=== PATIENT | female | born 1990 | race Caucasian/White ===

== ENCOUNTER 2024-12-20 20:23 | Emergency (ER) | payer BC, SELFPAY ==
[2024-12-20 20:26] VITALS: BP 132/96
[2024-12-20] MEDS: ZOFRAN 4 MG IV (20:45)
[2024-12-20 20:54] LABS: % Basophils 0.6 % (0-2); % Eosinophils 1.3 % (0-6); % Immature Granulocytes 3.7 % (0-0.5); % Lymphocytes 8.4 % (20.5-51.1); % Monocytes 6.4 % (1.7-9.3); % Neutrophils 79.6 % (42.2-75.2); Absolute Basophils 0.1 10^3/uL (0-0.2); Absolute Eosinophils 0.1 10^3/uL (0-0.7); Absolute Immature Granulocytes 0.3 10^3/uL (0-0.05); Absolute Lymphocytes 0.7 10^3/uL (1.2-3.4); Absolute Monocytes 0.6 10^3/uL (0.1-0.6); Hematocrit 43.7 % (37.0-47.0); Hemoglobin 15.2 g/dL (12.0-16.0); Mean Corp Hgb Conc. 34.8 g/dL (33.0-37.0); Mean Corpuscular Hgb 29.1 pg (27.0-31.0); Mean Corpuscular Volume 83.6 fL (81.0-99.0); Mean Platelet Volume 9.1 fL (7.4-10.4); Nucleated Red Blood Cells % 0 %; Platelet Count 187 10^3/uL (130-400); Red Blood Cell Count 5.23 10^6/uL (4.20-5.40); Red Cell Dist. Width 12.3 % (11.5-14.5); White Blood Cell Count 8.7 10^3/uL (4.8-10.8)
[2024-12-20 21:07] LABS: HCG, Serum Qualitative Screen Negative
[2024-12-20 21:11] LABS: ALT (SGPT) 23 U/L (0-35); AST (SGOT) 20 U/L (14-36); Albumin 4.7 g/dl (3.5-5.0); Alkaline Phosphatase 61 U/L (38-126); Blood Urea Nitrogen 19 mg/dl (7-17); Calcium 9.1 mg/dl (8.4-10.2); Carbon Dioxide 27 mmol/L (22-30); Chloride 105 mmol/L (98-107); Glucose 128 mg/dl (70-99); Potassium 4.3 mmol/L (3.5-5.1); Sodium 142 mmol/L (135-145); Total Protein 7.1 g/dl (6.3-8.2); eGFR > 60.00
[2024-12-20 21:13] LABS: Lipase 73 U/L (23-300)
[2024-12-20 21:49] VITALS: BP 112/95
[2024-12-20 22:00] VITALS: BP 131/78
[2024-12-20 22:01] VITALS: BMI 34.1
[2024-12-20 23:00] VITALS: BP 128/75
--- NOTE | 2024-12-20 23:00 | ED.GENMED ---
History of Present Illness
General
Chief Complaint: Abdominal Symptoms
Source: patient
Exam Limitations: none
Time Seen by Provider: 12/20/24 22:59
Nursing documentation reviewed up to this point in time: agreed with
History of Present Illness
History of Present Illness:
34-year-old female with no past medical history presents emergency department today with concerns of nausea, vomiting and diarrhea for the past 8 hours or so. Patient reports that she was taking her daughter to gymast's practice when she got home,
she suddenly started to feel nauseous, and later developed a headache and diarrhea. Of note, her was sick with similar symptoms the past few days. Patient recently finished a Z-Uli for bronchitis and states that her cough and URI symptoms
have been improving. She denies any fevers or chills. She denies any bloody stools or rectal bleeding. Denies any hematemesis. She denies any neck stiffness, visual changes, visual loss, upper extremity weakness, fainting spells, dizziness or
lightheadedness. She denies any chest pain or shortness of breath. She denies any abdominal pain, recent intra-abdominal surgeries. Patient is currently breast-feeding and is currently multiple months , denies any redness around the
breast or purulent drainage from the nipples.
Past History
Past History
ED Past Medical History: None
ED Past Surgical History: None
Social History
Tobacco: Non-smoker
Alcohol: None
Drug: None
Review of Systems
Review of Systems
All Other Systems: ROS reviewed and negative except as documented in HPI and ROS
Phy Exam
Physical Exam
Physical Exam:
General: Patient is well appearing and in no acute distress; non-toxic
Skin: Warm and dry, no rashes or lesions
Head: Normocephalic, atraumatic
Eyes: Sclera non-icteric. EOMs intact.
Cardiac: Regular rate and rhythm, no murmurs
Peripheral Vascular: No lower extremity swelling or edema
Pulm: Normal respiratory effort, no wheezes, rales, or rhonchi
Abdomen: No abdominal tenderness to palpation
Neuro: CN II-XII intact, no focal neurologic deficits.
Psychiatric: Appropriate mood and affect.
Course
Orders/Labs/Results
Orders:
Orders
12/20/24 20:29
Electrocardiogram (*1) Urgent
Reason for Study: Vertigo / Dizzy
EKG- Treatment ONCE
Test Result ONCE
12/20/24 20:40
Ondansetron Injectable [Zofran] 4 mg .ROUTE .STK-MED ONE
12/20/24 20:45
Complete Blood Count/With Diff Urgent
Comprehensive Metabolic Panel Urgent
HCG, Serum Qualitative Screen Urgent
Lipase Urgent
Ondansetron Injectable [Zofran] 4 mg IV NOW STA
12/20/24 23:13
0.9% Sodium Chloride 1000 ml [Nss] 1,000 ml IV BOLUS
Ketorolac [Toradol] 15 mg IV NOW STA
Metoclopramide [Reglan] 10 mg IV NOW STA
Abnormal Lab Results
12/20/24
20:45
Abs Immat Gran (auto) 0.3 H 10^3/uL
(0-0.05)
Absolute Neuts (auto) 7.0 H 10^3/uL
(1.4-6.5)
Absolute Lymphs (auto) 0.7 L 10^3/uL
(1.2-3.4)
Immature Gran % 3.7 H %
(0-0.5)
Neutrophils % 79.6 H %
(42.2-75.2)
Lymphocytes % 8.4 L %
(20.5-51.1)
BUN 19 H mg/dl
(7-17)
Glucose 128 H mg/dl
(70-99)
12/20/24 20:45
12/20/24 20:45
Vital Signs
Initial and Last Documented VS:
Initial Vital Signs
Temp Pulse Resp BP Pulse Ox
98.4 F 114 16 132/96 98
12/20/24 20:26 12/20/24 20:26 12/20/24 20:26 12/20/24 20:26 12/20/24 20:26
Last Documented Vital Signs
Temp Pulse Resp BP Pulse Ox
98.4 F 85 17 128/75 96
12/20/24 20:26 12/21/24 01:00 12/21/24 01:00 12/20/24 23:00 12/21/24 01:00
MDM/Problems Addressed
Differential Diagnosis Includes:
ddx include viral gastroenteritis, viral syndrome, colitis, IBS
MDM/Problems Addressed:
34-year-old female with no past medical history presents emergency department today with concerns of nausea, vomiting and diarrhea for the past 8 hours or so. Her is sick with similar symptoms. Patient denies any abdominal pain, fevers,
rectal bleeding, bloody stools. Associated with headache as well. Symptoms resolved with toradol and zofran, patient rehydrated with IV fluids. No DESTINY or electrolyte derangement noted on blood work. CBC unremarkable. Patient is able to tolerate PO.
Patient stable for discharge.
Did attempt to obtain stool culture however patient was unable to provide a sample for us in the ER; low suspicion for C.diff colitis.
*Pulse Oximetry
Patient hypoxic: no
*Critical Care Note
Total Time (30-74mins, 75-104mins- exclusive of procedures): Not Applicable
Data Reviewed
Review of Other/Old Records Reveals: Records
Patient Management
Escalation/DeEscalation of care consider admission/obs:
Patient stable for discharge
Update Note
Update Note:
12:33 am--Update patient states that she is feeling better has not had any further episodes of diarrhea or vomiting since she has been treated. Patient states her headache is improved. Patient is going to [employer]
ED Attending Note
-
Portions of this chart may have been created with voice recognition software.� Occasional wrong word or��sound alike� substitutions may have occurred due to the inherent limitations of voice recognition software.
Discharge Plan
Departure
Patient Disposition: Home (Routine Discharge)
Date of Disposition: 12/21/24
Time of Disposition: 01:03
Patient with high blood pressure during this ER visit?: Yes
Condition: Good
Discharge Problem:
Viral gastroenteritis
Instructions: Viral gastroenteritis in adults, Nausea and Vomiting, Adult (DC), BLOOD PRESSURE
Prescriptions:
New
ondansetron 4 mg tablet,disintegrating
4 mg PO Q4H PRN (Reason: nausea and vomiting) Qty: 10 0RF
No Action
Vitamin Tablet
1 tab PO DAILY
acetaminophen 325 MG tablet
650 mg PO Q4HPRN PRN (Reason: mild pain) 0RF
ibuprofen 600 MG tablet
600 mg PO Q4HPRN PRN (Reason: cramps) Qty: 30 0RF
Referrals:
Simin Mccormick CRNP [Family Provider] -
Activity Restrictions/Additional Instructions:
Please follow up with your primary care provider in 1-2 weeks.
PLEASE RETURN TO THE EMERGENCY DEPARTMENT SHOULD YOU DEVELOP CHEST PAIN, SHORTNESS OF BREATH, INTRACTABLE NAUSEA VOMITING, INABILITY TOLERATE ORAL INTAKE, FEVERS, RECTAL BLEEDING, DARK TARRY STOOLS, VISUAL CHANGES, INTRACTABLE HEADACHE, OR ANY OTHER
SIGNS OR SYMPTOMS WORRISOME TO YOU.
Interventions
Interventions:
*Risk Screen - Suicide Last Done: 12/20/24 22:04
*General Assessment Last Done: 12/20/24 22:04
*Neglect/Abuse Screening Last Done: 12/20/24 22:04
*ED- Fall Risk Assessment Last Done: 12/20/24 22:04
*ED COVID-19 Vaccine History Last Done: 12/20/24 22:04
*Nursing Disposition Last Done: 12/21/24 01:19
NU-Slkdgl-Fajddnygkr Assessment Last Done: 12/20/24 22:04
Discharge Date and Time
Discharge Date/Time: 12/21/24 01:20
Print Language: SENEGALESE
[2024-12-20] MEDS: NSS 1000 IV (23:22)
[2024-12-20] MEDS: REGLAN 10 MG IV (23:23)
[2024-12-20] MEDS: TORADOL 15 MG IV (23:25)
== END 2024-12-21 01:20 | disposition home or self-care (01) ==
LOC: EMR 20:23
PROVIDERS: Emergency Medicine; EMERGENCY PHYSICIAN Student in an Organized Health Care Education/Training Program; FAMILY PHYSICIAN Nurse Practitioner Family
DX: A08.4 Viral intestinal infection, unspecified (principal); R11.2 Nausea with vomiting, unspecified; R51.9 Headache, unspecified; R19.7 Diarrhea, unspecified; R42 Dizziness and giddiness; R03.0 Elevated blood-pressure reading, without diagnosis of hypertension; Z88.1 Allergy status to other antibiotic agents; Z88.0 Allergy status to penicillin; Z88.2 Allergy status to sulfonamides; Z91.048 Other nonmedicinal substance allergy status
CPT/HCPCS: 99284; 96374; 96375 ×2; 96361; 80053; 83690; 84703; 85025; 93005